=== PATIENT | male | born 1965 | race African-American/Black ===

== ENCOUNTER → 2017-03-21 | Outpatient (CLI) | payer BC ==
[2017-03-21 08:10] LABS: CARBON DIOXIDE 27 mEq/L (21-32); CHLORIDE 107 mEq/L (98-107); HDL CHOLESTEROL 54 mg/dL (40-59); LDL CHOLESTEROL 43 mg/dL (5-100)
== END | disposition home or self-care (01) ==
LOC: LAB 07:28
PROVIDERS: ATTEND Family Medicine
DX: E11.69 Type 2 diabetes mellitus with other specified complication (principal); N40.0 Benign prostatic hyperplasia without lower urinary tract symptoms
CPT/HCPCS: 36415; 80053; 80061; 83036; 84153

== ENCOUNTER → 2017-08-23 | Outpatient (CLI) | payer BC | END | disposition home or self-care (01) | LOC: LAB 09:09 | PROVIDERS: ATTEND Urology | DX: R97.20 Elevated prostate specific antigen [PSA] (principal) | CPT/HCPCS: 36415; 84153 ==

== ENCOUNTER → 2018-08-12 | Outpatient (CLI) | payer BC | END | disposition home or self-care (01) | LOC: LAB 08:21 | PROVIDERS: ATTEND Urology | DX: R97.20 Elevated prostate specific antigen [PSA] (principal) | CPT/HCPCS: 36415; 84153; G0103 ==

== ENCOUNTER → 2018-11-10 | Outpatient (CLI) | payer BC ==
[2018-11-10 08:50] LABS: CHLORIDE 109 mEq/L (98-107)
[2018-11-10 08:58] LABS: LDL CHOLESTEROL 70 mg/dL (5-100)
[2018-11-10 09:00] LABS: HDL CHOLESTEROL 51 mg/dL (40-59)
[2018-11-11 08:19] LABS: *CREATININE RANDOM URINE 148.3 mg/dL (Not Estab.); MICROALBUMIN RANDOM URINE 8.2 ug/mL (Not Estab.)
== END | disposition home or self-care (01) ==
LOC: LAB 07:47
PROVIDERS: ATTEND Family Medicine
DX: E11.69 Type 2 diabetes mellitus with other specified complication (principal)
CPT/HCPCS: 36415; 80061; 82043; 82570; 83036

== ENCOUNTER → 2019-08-20 | Outpatient (CLI) | payer BC ==
[2019-08-20 08:17] LABS: CHLORIDE 107 mEq/L (98-107)
[2019-08-20 08:24] LABS: LDL CHOLESTEROL 78 mg/dL (5-100)
[2019-08-20 08:25] LABS: HDL CHOLESTEROL 40 mg/dL (40-59)
[2019-08-20 08:32] LABS: BASOPHILS % 0.4 % (0.0-2.0); EOSINOPHILS % 0.6 % (0.0-5.0); HEMATOCRIT. 41.8 % (42.0-52.0); HEMOGLOBIN. 13.4 g/dL (14.0-18.0); MEAN CORPUSCULAR HEMOGLOBIN 25.8 pg (28.0-32.0); MEAN CORPUSCULAR VOLUME 80.6 fL (80.0-94.0); MONOCYTES % 12.7 % (2.0-8.0); NEUTROPHILS % 46.3 % (40.0-76.0); PLATELET 246 x1000/uL (130-400); RED BLOOD CELL COUNT 5.18 mill/uL (4.7-6.1); RED CELL DISTRIBUTION WIDTH 14.2 % (11.6-14.6)
[2019-08-22 04:08] LABS: % FREE PSA 24.6 % (.); PROSTATE SPECIFIC AG TOTAL 5.2 ng/mL (0.0-4.0); PSA FREE 1.28 ng/mL
== END | disposition home or self-care (01) ==
LOC: LAB 07:24
PROVIDERS: ATTEND Family Medicine
DX: Z00.01 Encounter for general adult medical examination with abnormal findings (principal)
CPT/HCPCS: 36415; 80061; 83036; 84153; 84154; 84443

== ENCOUNTER → 2020-02-18 | Outpatient (CLI) | payer BC ==
[2020-02-18 08:05] LABS: CHLORIDE 110 mEq/L (98-107)
== END | disposition home or self-care (01) ==
LOC: LAB 07:37
PROVIDERS: ATTEND Family Medicine
DX: E11.22 Type 2 diabetes mellitus with diabetic chronic kidney disease (principal); N18.9 Chronic kidney disease, unspecified
CPT/HCPCS: 36415; 80053; 83036

== ENCOUNTER → 2020-03-04 | Outpatient (CLI) | payer BC ==
[2020-03-05 05:12] LABS: % FREE PSA 30.6 % (.); PROSTATE SPECIFIC AG TOTAL 4.8 ng/mL (0.0-4.0); PSA FREE 1.47 ng/mL
== END | disposition home or self-care (01) ==
LOC: LAB 07:47
DX: N40.0 Benign prostatic hyperplasia without lower urinary tract symptoms (principal)
CPT/HCPCS: 36415; 84153; 84154; G0103

== ENCOUNTER → 2020-10-28 | Outpatient (CLI) | payer BC ==
[2020-10-28 07:51] LABS: CHLORIDE 109 mEq/L (98-107)
[2020-10-28 07:57] LABS: BASOPHILS % 0.7 % (0.0-2.0); EOSINOPHILS % 0.8 % (0.0-5.0); HEMATOCRIT. 39.5 % (42.0-52.0); HEMOGLOBIN. 12.8 g/dL (14.0-18.0); LYMPHOCYTES % 36.2 % (20.0-50.0); MEAN CORPUSCULAR HEMOGLOBIN 25.3 pg (28.0-32.0); MEAN CORPUSCULAR VOLUME 78.2 fL (80.0-94.0); MEAN PLATELET VOLUME 7.6 fl (7.4-10.4); MONOCYTES % 10.1 % (2.0-8.0); NEUTROPHILS % 52.2 % (40.0-76.0); PLATELET 237 x1000/uL (130-400); RED BLOOD CELL COUNT 5.05 mill/uL (4.7-6.1); RED CELL DISTRIBUTION WIDTH 15.2 % (11.6-14.6)
== END | disposition home or self-care (01) ==
LOC: LAB 06:47
PROVIDERS: ATTEND Family Medicine
DX: E11.9 Type 2 diabetes mellitus without complications (principal)
CPT/HCPCS: 36415; 80053; 83036; 85025

== ENCOUNTER → 2021-01-24 | Outpatient (CLI) | payer BC ==
[2021-01-24 07:51] LABS: BASOPHILS % 0.5 % (0.0-2.0); EOSINOPHILS % 0.4 % (0.0-5.0); HEMATOCRIT. 42.7 % (42.0-52.0); HEMOGLOBIN. 13.6 g/dL (14.0-18.0); LYMPHOCYTES % 35.9 % (20.0-50.0); MEAN CORPUSCULAR HEMOGLOBIN 25.5 pg (28.0-32.0); MEAN CORPUSCULAR VOLUME 79.8 fL (80.0-94.0); MEAN PLATELET VOLUME 7.7 fl (7.4-10.4); NEUTROPHILS % 50.2 % (40.0-76.0); PLATELET 264 x1000/uL (130-400); RED BLOOD CELL COUNT 5.35 mill/uL (4.7-6.1); RED CELL DISTRIBUTION WIDTH 15.9 % (11.6-14.6)
[2021-01-24 08:07] LABS: CHLORIDE 108 mEq/L (98-107)
[2021-01-24 08:14] LABS: LDL CHOLESTEROL 55 mg/dL (5-100)
[2021-01-24 08:15] LABS: HDL CHOLESTEROL 69 mg/dL (40-59)
[2021-01-25 08:08] LABS: *CREATININE RANDOM URINE 245.1 mg/dL (Not Estab.); MICROALBUMIN RANDOM URINE 13.1 ug/mL (Not Estab.)
== END | disposition home or self-care (01) ==
LOC: LAB 07:27
PROVIDERS: ATTEND Family Medicine
DX: E11.69 Type 2 diabetes mellitus with other specified complication (principal)
CPT/HCPCS: 36415; 80053; 80061; 82043; 82570; 83036; 84153; 85025; G0103

== ENCOUNTER → 2021-09-26 | Outpatient (CLI) | payer BC ==
[2021-09-26 11:23] LABS: CHLORIDE 110 mEq/L (98-107)
[2021-09-26 11:32] LABS: LDL CHOLESTEROL 52 mg/dL (5-100)
[2021-09-26 11:34] LABS: HDL CHOLESTEROL 52 mg/dL (40-59)
[2021-09-27 07:12] LABS: *CREATININE RANDOM URINE 274.1 mg/dL (Not Estab.); MICROALBUMIN RANDOM URINE 17.2 ug/mL (Not Estab.)
== END | disposition home or self-care (01) ==
LOC: LAB 10:30
PROVIDERS: ATTEND Family Medicine
DX: E11.69 Type 2 diabetes mellitus with other specified complication (principal)
CPT/HCPCS: 36415; 80053; 80061; 82043; 82570; 83036

== ENCOUNTER → 2021-12-31 | Outpatient (CLI) | payer BC ==
[2021-12-31 08:00] LABS: CHLORIDE 111 mEq/L (98-107)
[2021-12-31 08:08] LABS: LDL CHOLESTEROL 49 mg/dL (5-100)
[2021-12-31 08:09] LABS: HDL CHOLESTEROL 55 mg/dL (40-59)
== END | disposition home or self-care (01) ==
LOC: LAB 06:46
DX: E11.69 Type 2 diabetes mellitus with other specified complication (principal)
CPT/HCPCS: 36415; 80053; 80061; 83036; 84153; G0103

== ENCOUNTER → 2024-02-04 | Outpatient (CLI) | payer BC | END | disposition home or self-care (01) | LOC: MRI 16:46 | PROVIDERS: ATTEND Family Medicine | DX: C61 Malignant neoplasm of prostate (principal); N42.89 Other specified disorders of prostate; N32.89 Other specified disorders of bladder | CPT/HCPCS: 72195 ==